=== PATIENT | male | born 1995 | race Caucasian/White ===

== ENCOUNTER 2023-12-19 02:33 | Emergency (ER) | payer OTHER ==
[2023-12-19 02:46] VITALS: BP 136/88; PULSE 78; RESP 22; TEMP 98.1; BMI 30.9
[2023-12-19] MEDS ORDERED: ACETAMINOPHEN 325 MG TABLET (FP) ONE (03:11)
[2023-12-19] MEDS: ACETAMINOPHEN 325 MG TABLET (FP) PO ONE (03:25)
[2023-12-19] MEDS ORDERED: guaiFENesin 200 MG/10 ML 10 ML UNIT-DOSE CUPS ONE (03:25)
[2023-12-19] MEDS ORDERED: ONDANSETRON *ODT* 4 MG TABLET ONE (03:25)
[2023-12-19] MEDS: guaiFENesin 200 MG/10 ML 10 ML UNIT-DOSE CUPS PO ONE (03:28)
[2023-12-19] MEDS: ONDANSETRON *ODT* 4 MG TABLET SL ONE (03:28)
[2023-12-19 04:36] LABS: THROAT:GRP A STREP DETECTED (NOTDETECTED)
[2023-12-19] MEDS ORDERED: KETOROLAC TROMETHAMINE 15 MG/ML VIAL ONE (04:54)
[2023-12-19] MEDS ORDERED: PENICILLIN G BENZATHINE 1,200,000 UNIT/2 ML PFS IM ONE (04:59)
[2023-12-19] MEDS: PENICILLIN G BENZATHINE 1,200,000 UNIT/2 ML PFS IM ONE (05:05)
[2023-12-19] MEDS: KETOROLAC TROMETHAMINE 15 MG/ML VIAL IM ONE (05:05)
[2023-12-19 05:11] LABS: HIV INTERPRETATION NEGATIVE (NEGATIVE)
== END 2023-12-19 05:15 | disposition home or self-care (01) ==
LOC: JER 02:33
PROC: 3E02329 Introduction of Other Anti-infective into Muscle, Percutaneous Approach (ICD-10-PCS; principal; 2023-12-19)
PROC: 3E0233Z Introduction of Anti-inflammatory into Muscle, Percutaneous Approach (ICD-10-PCS; 2023-12-19)
DX: R05.9 Cough, unspecified (principal); R50.9 Fever, unspecified; J02.0 Streptococcal pharyngitis; Z20.822 Contact with and (suspected) exposure to COVID-19
CPT/HCPCS: 0241U-QW; 36415; 71046-TC-FY; 86803; 87389; 87651; 99284-25; Q0162